=== PATIENT | female | born 1970 | race Caucasian/White ===

== ENCOUNTER 2017-03-24 18:52 | Emergency (ER) | payer SELFPAY ==
[2017-03-24] MEDS ORDERED: Ketorolac Tromethamine 30 MG/ML VIAL ONE (21:11)
--- NOTE | 2017-03-24 22:00 | RAD ---
TWO VIEWS CHEST 03/24/17 PROVIDED CLINICAL HISTORY: Fever. FINDINGS: The cardiac and mediastinal silhouette is within normal limits. No focal consolidation, pleural fluid , or pneumothorax apparent. IMPRESSION: No evidence for an acute cardiopulmonary process. POS: [facility]
== END 2017-03-24 22:05 | disposition home or self-care (01) ==
LOC: ERS 18:52
DX: J10.1 Influenza due to other identified influenza virus with other respiratory manifestations (principal); F17.210 Nicotine dependence, cigarettes, uncomplicated
CPT/HCPCS: 71020; 96372; J1885; J7620

== ENCOUNTER 2017-09-10 15:01 | Emergency (ER) | payer SELFPAY ==
[2017-09-10 16:17] LABS: Bilirubin Negative (Negative); Blood, Urine Negative (Negative); Clarity CLEAR (Clear); Glucose, Urine (Dipstick) Negative (Negative); Leukocyte Negative (Negative); Nitrite Negative (Negative); Protein, Urine (Dipstick) Negative (Neg-Trace); Specific Gravity, Urine 1.015 (1.002-1.036)
== END 2017-09-10 16:46 | disposition home or self-care (01) ==
LOC: ERS 15:01
DX: S39.012A Strain of muscle, fascia and tendon of lower back, initial encounter (principal); E78.5 Hyperlipidemia, unspecified; E11.9 Type 2 diabetes mellitus without complications; F41.9 Anxiety disorder, unspecified; F17.210 Nicotine dependence, cigarettes, uncomplicated; X50.1XXA Overexertion from prolonged static or awkward postures, initial encounter
CPT/HCPCS: 81003; 99283

== ENCOUNTER 2017-09-17 12:24 | Emergency (ER) | payer SELFPAY | END 2017-09-17 13:22 | disposition home or self-care (01) | LOC: ERS 12:24 | DX: S39.012A Strain of muscle, fascia and tendon of lower back, initial encounter (principal); E11.9 Type 2 diabetes mellitus without complications; E78.5 Hyperlipidemia, unspecified; E78.00 Pure hypercholesterolemia, unspecified; F41.9 Anxiety disorder, unspecified; F17.210 Nicotine dependence, cigarettes, uncomplicated; X50.9XXA Other and unspecified overexertion or strenuous movements or postures, initial encounter | CPT/HCPCS: 99281 ==

== ENCOUNTER 2018-02-09 18:05 | Emergency (ER) | payer OTHER, SELFPAY ==
[2018-02-09] MEDS ORDERED: Ibuprofen 800 MG TAB ONE (18:40)
== END 2018-02-09 18:44 | disposition home or self-care (01) ==
LOC: ERS 18:05
DX: K04.7 Periapical abscess without sinus (principal); K02.9 Dental caries, unspecified; Z71.6 Tobacco abuse counseling; E11.9 Type 2 diabetes mellitus without complications; E78.5 Hyperlipidemia, unspecified; F41.9 Anxiety disorder, unspecified; F17.210 Nicotine dependence, cigarettes, uncomplicated
CPT/HCPCS: 99406

== ENCOUNTER 2018-11-26 10:45 | Emergency (ER) | payer OTHER | END 2018-11-26 11:21 | disposition home or self-care (01) | LOC: ERS 10:45 | DX: K02.9 Dental caries, unspecified (principal); E11.9 Type 2 diabetes mellitus without complications; E78.5 Hyperlipidemia, unspecified; E78.00 Pure hypercholesterolemia, unspecified; F41.9 Anxiety disorder, unspecified; F17.210 Nicotine dependence, cigarettes, uncomplicated | CPT/HCPCS: 99282 ==

== ENCOUNTER 2018-12-27 11:34 | Emergency (ER) | payer OTHER, SELFPAY ==
[2018-12-27] MEDS ORDERED: Ondansetron ODT 8 MG TAB ONE (13:25)
[2018-12-27] MEDS ORDERED: Azithromycin 250 MG TAB ONE (13:25)
== END 2018-12-27 13:34 | disposition home or self-care (01) ==
LOC: ERS 11:34
DX: R11.2 Nausea with vomiting, unspecified (principal); R19.7 Diarrhea, unspecified; E11.9 Type 2 diabetes mellitus without complications; E78.5 Hyperlipidemia, unspecified; E78.00 Pure hypercholesterolemia, unspecified; F32.9 Major depressive disorder, single episode, unspecified; F41.9 Anxiety disorder, unspecified; F17.210 Nicotine dependence, cigarettes, uncomplicated
CPT/HCPCS: 99283

== ENCOUNTER 2019-05-30 10:39 | Emergency (ER) | payer SELFPAY ==
[2019-05-30 12:51] LABS: Bilirubin Negative (Negative); Blood, Urine Negative (Negative); Clarity Clear (Clear); Glucose, Urine (Dipstick) Greater than 1000 mg/dL (Negative); Leukocyte Negative Leu/uL (Negative); Nitrite Negative (Negative); Protein, Urine (Dipstick) 10 mg/dL (Neg-Trace)
[2019-05-31 22:01] LABS: Chlamydia by PCR Not Detected (NotDetected); GC by PCR Not Detected (NotDetected)
== END 2019-05-30 13:36 | disposition home or self-care (01) ==
LOC: ERS 10:39
DX: N89.8 Other specified noninflammatory disorders of vagina (principal); R73.03 Prediabetes; E78.5 Hyperlipidemia, unspecified; E78.00 Pure hypercholesterolemia, unspecified; F41.9 Anxiety disorder, unspecified; F32.9 Major depressive disorder, single episode, unspecified; F17.210 Nicotine dependence, cigarettes, uncomplicated; Z71.6 Tobacco abuse counseling
CPT/HCPCS: 81003; 87086; 87480; 87491; 87510; 87591; 87660; 99406

== ENCOUNTER 2021-02-24 13:26 | Emergency (ER) | payer SELFPAY | END 2021-02-24 14:06 | disposition home or self-care (01) | LOC: ERS 13:26 | DX: H10.9 Unspecified conjunctivitis (principal) | CPT/HCPCS: 99282 ==

== ENCOUNTER 2021-05-10 15:53 | Emergency (ER) | payer SELFPAY ==
[2021-05-10] MEDS ORDERED: Ondansetron ODT 8 MG TAB ONE (16:15)
== END 2021-05-10 16:30 | disposition home or self-care (01) ==
LOC: ERS 15:53
DX: U07.1 COVID-19 (principal)
CPT/HCPCS: 99283; Q0162

== ENCOUNTER 2021-07-29 15:41 | Outpatient (CLI) | payer BC | END 2021-07-29 15:42 | disposition home or self-care (01) | LOC: BICRAD 15:41 | PROVIDERS: ATTEND Family Medicine | DX: M25.511 Pain in right shoulder (principal); M19.011 Primary osteoarthritis, right shoulder ==

== ENCOUNTER 2021-08-04 01:20 | Emergency (ER) | payer BC | END 2021-08-04 04:48 | disposition home or self-care (01) | LOC: ERS 01:20 | DX: S63.602A Unspecified sprain of left thumb, initial encounter (principal); F17.210 Nicotine dependence, cigarettes, uncomplicated; V19.9XXA Pedal cyclist (driver) (passenger) injured in unspecified traffic accident, initial encounter ==

== ENCOUNTER 2021-09-09 13:10 | Emergency (ER) | payer BC ==
[2021-09-09] MEDS ORDERED: Ketorolac Tromethamine 30 MG/ML VIAL ONE (13:46)
[2021-09-09] MEDS ORDERED: Acetaminophen 500 MG TAB ONE (13:46)
== END 2021-09-09 14:38 | disposition home or self-care (01) ==
LOC: ERS 13:10
DX: S13.4XXA Sprain of ligaments of cervical spine, initial encounter (principal); S63.602A Unspecified sprain of left thumb, initial encounter; S90.31XA Contusion of right foot, initial encounter; X50.0XXA Overexertion from strenuous movement or load, initial encounter; Z79.899 Other long term (current) drug therapy
CPT/HCPCS: 96372; J1885

== ENCOUNTER 2022-06-04 14:36 | Outpatient (CLI) | payer BC | END 2022-06-04 14:37 | disposition home or self-care (01) | LOC: BICRAD 14:36 | PROVIDERS: ATTEND Family Medicine | DX: M79.671 Pain in right foot (principal); M25.512 Pain in left shoulder; M77.31 Calcaneal spur, right foot ==

== ENCOUNTER 2022-06-19 15:39 | Emergency (ER) | payer BC ==
[2022-06-19 16:39] LABS: #Basophils 0.1 thou/uL (0.0-0.2); #Eosinphils 0.2 thou/uL (0.0-0.7); #Lymphocytes 2.8 thou/uL (1.20-3.40); #Monocytes 0.5 thou/uL (0.11-0.59); #Neutrophils 9.6 thou/uL (1.40-6.50); %Basophils 0.6 % (0.0-1.0); %Eosinophils 1.2 % (0.0-10.0); %Lymphocytes 21.1 % (21.0-51.0); %Monocytes 3.8 % (0.0-10.0); %Neutrophils 73.4 % (42.0-75.0); Hemoglobin 15.6 g/dL (12.0-16.0); Mean Corpuscular HGB CONC 32.4 g/dL (32.0-36.0); Mean Corpuscular Hemoglobin 30.7 pg (27.0-31.0); Mean Corpuscular Volume 94.8 fl (78.0-98.0); Mean Platelet Volume 7.6 fL (7.4-10.4); Platelet Count 274 10x3/uL (130-400); RBC Distribution Width 11.8 % (11.5-14.5); Red Blood Cell (RBC) Count 5.08 mill/uL (4.20-5.40); White Blood Cell (WBC) Count 13.1 10x3/uL (4.8-10.8)
[2022-06-19 17:02] LABS: ALT (SGPT) 27 U/L (8-55); AST (SGOT) 21 U/L (5-34); Albumin 4.6 g/dL (3.5-5.0); Alkaline Phosphatase 89 U/L (40-110); Anion Gap 14 mmol/L (10-20); BUN (Urea Nitrogen) 9 mg/dL (7.0-18.7); Bilirubin, Total 0.4 mg/dL (0.2-1.2); Calc. Creatinine Clearance 0 mL/min (70-130); Carbon Dioxide 25 mmol/L (22-29); Chloride 104 mmol/L (98-107); Estimated GFR 102; Globulin 3.7 g/dL (2.4-3.5); Glucose 130 mg/dL (70-105); Lipase 28 U/L (8-78); Potassium 4.2 mmol/L (3.5-5.1); Protein, Total 8.3 g/dL (6.0-8.3); Sodium 139 mmol/L (136-145)
[2022-06-19 17:31] LABS: BHCG - Serum Negative (NEGATIVE); Pregs Control Background? CLEAR/WHITE (CLR/WHITE); Pregs Control Bar Appear? YES (CONTROL BAR)
[2022-06-19 18:37] LABS: Bilirubin Negative (Negative); Blood, Urine Negative (Negative); Clarity Clear (Clear); Glucose, Urine (Dipstick) Normal (Negative); Ketone, Urine Negative (Negative); Leukocyte Negative Leu/uL (Negative); Nitrite Negative (Negative); Urobilinogen Normal mg/dL (Less than 2)
[2022-06-19] MEDS ORDERED: Lidocaine 1% w/Epinephrine 1:100K 20 ML VIAL ONE (19:14)
[2022-06-19 19:55] LABS: Specific Gravity, Urine 1.026 (1.002-1.036); pH, Urine 5.5 (5.0-9.0)
[2022-06-19 19:56] LABS: Protein, Urine (Dipstick) 10 mg/dL (Neg-Trace)
[2022-06-19] MEDS ORDERED: Ketorolac Tromethamine 30 MG/ML VIAL ONE (20:04)
[2022-06-19] MEDS ORDERED: Clindamycin/D5W 900 mg/50 ml Premix Bag ONE (20:04)
== END 2022-06-19 21:35 | disposition home or self-care (01) ==
LOC: ERS 15:39
DX: N61.1 Abscess of the breast and nipple (principal); R10.9 Unspecified abdominal pain; F17.200 Nicotine dependence, unspecified, uncomplicated
CPT/HCPCS: 10060; 36415; 74177; 80053; 81003; 83690; 84703; 85025; 96365; 96375; J1885; J3490

== ENCOUNTER 2022-06-21 20:20 | Emergency (ER) | payer BC | END 2022-06-21 20:56 | disposition home or self-care (01) | LOC: ERS 20:20 | DX: Z48.817 Encounter for surgical aftercare following surgery on the skin and subcutaneous tissue (principal); F17.210 Nicotine dependence, cigarettes, uncomplicated | CPT/HCPCS: 99281 ==

== ENCOUNTER 2022-07-09 10:34 | Outpatient (CLI) | payer BC | END 2022-07-09 10:35 | disposition home or self-care (01) | LOC: DTY/OP 10:34 | PROVIDERS: ATTEND Family Medicine | DX: Z71.3 Dietary counseling and surveillance (principal) | CPT/HCPCS: 97802 ==

== ENCOUNTER 2023-02-16 15:00 | Outpatient (CLI) | payer BC | END 2023-02-16 15:01 | disposition home or self-care (01) | LOC: BICMRI 15:00 | PROVIDERS: ATTEND Family Medicine | DX: R29.898 Other symptoms and signs involving the musculoskeletal system (principal) ==

== ENCOUNTER 2023-04-05 13:01 | Emergency (ER) | payer BC ==
[2023-04-05 14:02] LABS: Bacteria/HPF None Seen HPF (None Seen); Bilirubin Negative (Negative); Blood, Urine Negative (Negative); CAUTI Indications for Culture Pelvic or flank pain; Clarity Clear (Clear); Glucose, Urine (Dipstick) Normal (Negative); Ketone, Urine Negative (Negative); Leukocyte Negative Leu/uL (Negative); Nitrite Negative (Negative); Protein, Urine (Dipstick) Negative (Neg-Trace); RBC/HPF 0-3 HPF (0-3); Specific Gravity, Urine 1.004 (1.002-1.036); Squamous Epithelial 0-3 HPF (0-3); Urobilinogen Normal mg/dL (Less than 2); WBC/HPF None Seen HPF (0-3)
[2023-04-05] MEDS ORDERED: Ketorolac Tromethamine 30 MG (1 mL) VIAL ONE (14:03)
[2023-04-05 14:08] LABS: Urine Culture Reflex No No
== END 2023-04-05 14:57 | disposition home or self-care (01) ==
LOC: ERS 13:01
DX: M54.50 Low back pain, unspecified (principal); M43.6 Torticollis; F17.200 Nicotine dependence, unspecified, uncomplicated
CPT/HCPCS: 81001; 96372; 99283; J1885

== ENCOUNTER 2023-04-08 13:11 | Emergency (ER) | payer BC ==
[2023-04-08 14:44] LABS: #Basophils 0.1 thou/uL (0.0-0.2); #Eosinphils 0.2 thou/uL (0.0-0.7); #Monocytes 0.7 thou/uL (0.11-0.59); #Neutrophils 6.2 thou/uL (1.40-6.50); %Basophils 0.7 % (0.0-1.0); %Lymphocytes 26.1 % (21.0-51.0); %Monocytes 7.2 % (0.0-10.0); %Neutrophils 63.7 % (42.0-75.0); Hematocrit 43.2 % (36.0-47.0); Mean Corpuscular HGB CONC 32.4 g/dL (32.0-36.0); Mean Corpuscular Hemoglobin 31.3 pg (27.0-31.0); Mean Corpuscular Volume 96.6 fl (78.0-98.0); Mean Platelet Volume 9.2 fL (7.4-10.4); Platelet Count 262 10x3/uL (130-400); RBC Distribution Width 12.8 % (11.5-14.5); Red Blood Cell (RBC) Count 4.47 mill/uL (4.20-5.40); White Blood Cell (WBC) Count 9.7 10x3/uL (4.8-10.8)
[2023-04-08 15:08] LABS: ALT (SGPT) 16 U/L (8-55); AST (SGOT) 16 U/L (5-34); Albumin 4.4 g/dL (3.5-5.0); Alkaline Phosphatase 68 U/L (40-110); Anion Gap 12 mmol/L (10-20); BUN (Urea Nitrogen) 9 mg/dL (9.8-20.1); Bilirubin, Total 0.4 mg/dL (0.2-1.2); Calc. Creatinine Clearance 0 mL/min (70-130); Calcium 9.3 mg/dL (7.8-10.44); Carbon Dioxide 28 mmol/L (22-29); Chloride 104 mmol/L (98-107); Estimated GFR 107; Globulin 2.8 g/dL (2.4-3.5); Glucose 94 mg/dL (70-105); Potassium 4.6 mmol/L (3.5-5.1); Protein, Total 7.2 g/dL (6.0-8.3); Sodium 139 mmol/L (136-145); Troponin I Less than 0.010 ng/mL (< 0.028)
[2023-04-08] MEDS ORDERED: Aspirin Chewable 81 MG TAB ONE (15:38)
[2023-04-08] MEDS ORDERED: Nitroglycerin 2% Ointment 1 INCH/1 GM Packet ONE (15:38)
[2023-04-08 17:43] LABS: Troponin I Less than 0.010 ng/mL (< 0.028)
== END 2023-04-08 18:06 | disposition home or self-care (01) ==
LOC: ERS 13:11
DX: R07.9 Chest pain, unspecified (principal); F17.210 Nicotine dependence, cigarettes, uncomplicated
CPT/HCPCS: 36415; 71045; 80053; 84484; 85025; 93005

== ENCOUNTER 2023-04-16 13:00 | Outpatient (CLI) | payer BC | END 2023-04-16 13:01 | disposition home or self-care (01) | LOC: BICMRI 13:00 | PROVIDERS: ATTEND Family Medicine | DX: M47.22 Other spondylosis with radiculopathy, cervical region (principal); G95.89 Other specified diseases of spinal cord | CPT/HCPCS: 72141 ==

== ENCOUNTER 2024-03-21 12:30 | Emergency (ER) | payer BC ==
[2024-03-21] MEDS ORDERED: Acetaminophen 500 MG TAB ONE (15:09)
[2024-03-21] MEDS ORDERED: diphenhydrAMINE 50 MG/ML VIAL ONE (15:09)
[2024-03-21] MEDS ORDERED: Ketorolac Tromethamine 30 MG (1 mL) VIAL ONE (15:09)
[2024-03-21] MEDS ORDERED: Metoclopramide HCl 10 MG (2 mL) VIAL ONE (15:10)
== END 2024-03-21 17:58 | disposition home or self-care (01) ==
LOC: ERS 12:30
DX: G43.919 Migraine, unspecified, intractable, without status migrainosus (principal); F17.210 Nicotine dependence, cigarettes, uncomplicated
CPT/HCPCS: 70450; 72125; J1200; J1885; J2765

== ENCOUNTER 2024-04-13 14:50 | Outpatient (CLI) | payer BC | END 2024-04-13 14:51 | disposition home or self-care (01) | LOC: BICMRI 14:50 | PROVIDERS: ATTEND Family Medicine | DX: M47.26 Other spondylosis with radiculopathy, lumbar region (principal); R29.2 Abnormal reflex; M47.817 Spondylosis without myelopathy or radiculopathy, lumbosacral region; M47.815 Spondylosis without myelopathy or radiculopathy, thoracolumbar region | CPT/HCPCS: 72148 ==

== ENCOUNTER 2025-03-10 01:15 | Emergency (ER) | payer BC ==
[2025-03-10 01:49] LABS: Glucose, Urine (Dipstick) Negative (Negative); Leukocyte Small (Negative); Protein, Urine (Dipstick) Trace mg/dL (Neg-Trace); Specific Gravity, Urine 1.015 (1.005-1.030)
[2025-03-10 01:55] LABS: Bacteria/HPF None Seen HPF (None Seen); CAUTI Indications for Culture Pelvic or flank pain; WBC/HPF Greater than 50 HPF (0-3)
[2025-03-10 01:56] LABS: #Basophils 0.08 10x3/uL (0.0-0.2); #Eosinophils 0.28 10x3/uL (0.0-0.7); #Monocytes 0.78 10x3/uL (0.11-0.59); #Neutrophils 7.80 10x3/uL (1.40-6.50); %Basophils 0.6 % (0.0-1.0); %Eosinophils 2.2 % (0.0-10.0); %Lymphocytes 30.9 % (21.0-51.0); %Monocytes 6.0 % (0.0-10.0); %Neutrophils 60.0 % (42.0-75.0); Hematocrit 44.1 % (36.0-47.0); Hemoglobin 14.4 g/dL (12.0-16.0); Mean Corpuscular Hemoglobin 30.2 pg (27.0-31.0); Mean Corpuscular Volume 92.5 fL (78.0-98.0); Platelet Count 244 10x3/uL (130-400); Red Blood Cell (RBC) Count 4.77 mill/uL (4.20-5.40); White Blood Cell (WBC) Count 13.00 10x3/uL (4.8-10.8)
[2025-03-10 01:58] LABS: Urine Culture Reflex Yes Yes
[2025-03-10 02:10] LABS: ALT (SGPT) 38 U/L (Less than 34); AST (SGOT) 28 U/L (11-34); Albumin 4.4 g/dL (3.1-4.5); Alkaline Phosphatase 123 U/L (40-110); Anion Gap 17 mmol/L (10-20); BUN (Urea Nitrogen) 12 mg/dL (9.8-20.1); Bilirubin, Total 0.2 mg/dL (0.3-1.2); Calc. Creatinine Clearance 0 mL/min (70-130); Calcium 9.7 mg/dL (7.8-10.44); Carbon Dioxide 26 mmol/L (22-29); Chloride 100 mmol/L (98-107); Globulin 3.9 g/dL (2.4-3.5); Glucose 205 mg/dL (70-105); Lipase 28 U/L (8-78); Potassium 3.8 mmol/L (3.5-5.1); Sodium 139 mmol/L (136-145)
== END 2025-03-10 05:03 | disposition home or self-care (01) ==
LOC: ERS 01:15
DX: N10 Acute pyelonephritis (principal); K76.0 Fatty (change of) liver, not elsewhere classified; F17.210 Nicotine dependence, cigarettes, uncomplicated; Z75.3 Unavailability and inaccessibility of health-care facilities
CPT/HCPCS: 74177; 80053; 81001; 83690; 85025; 87077; 87086; 87186

== ENCOUNTER 2025-03-30 23:03 | Emergency (ER) | payer BC ==
[2025-03-31] MEDS ORDERED: Lidocaine 1% PF 5 ML VIAL ONE (00:03)
== END 2025-03-31 01:22 | disposition home or self-care (01) ==
LOC: ERS 23:03
DX: S91.311A Laceration without foreign body, right foot, initial encounter (principal); Z23 Encounter for immunization; X58.XXXA Exposure to other specified factors, initial encounter
CPT/HCPCS: 12001; 90471; 90715